=== PATIENT | female | born 1970 | race Caucasian/White ===

== ENCOUNTER → 2016-08-13 | Outpatient (CLI) | payer BC ==
[~2016-08-13] MED LIST: IBUP600T44 PO; OXYC-57 PO; PRENTAB26 PO
== END | disposition home or self-care (01) ==
LOC: C.PAPS 08:35
PROVIDERS: ATTEND Obstetrics & Gynecology
DX: N87.9 Dysplasia of cervix uteri, unspecified (principal); Z01.411 Encounter for gynecological examination (general) (routine) with abnormal findings

== ENCOUNTER → 2017-04-29 | Outpatient (CLI) | payer BC ==
--- NOTE | 2017-04-29 14:27 | MAMMOGRAPHY REPORT ---
ULTRASOUND OF BOTH BREASTS: 04/29/2017 CLINICAL HISTORY: The patient presents for screening bilateral breast ultrasound. She denies any cur rent complaints. COMPARISON: Comparison is made to exams dated: 04/28/2016 mammogram, 04/30/2015 ultrasound, 04/30/20 15 mammogram, 04/18/2015 mammogram, 02/27/2014 mammogram, and 02/13/2013 mammogram - [facility]. TECHNIQUE: Real-time ultrasound of both breasts was performed. FINDINGS: Real-time, high-resolution ultrasound was performed of both breasts including all 4 quadra nts and subareolar regions. The background parenchymal echotexture is heterogeneous. There are nume timothy anechoic circumscribed masses seen throughout both breasts, consistent with benign cysts. No ortega spicious solid masses are evident. IMPRESSION: ACR BI-RADS CATEGORY 2: BENIGN Multiple benign cysts seen bilaterally. There is no sonographic evidence of malignancy. A 1 year sc reening mammogram is recommended. The patient was verbally notified of the results. Annika Salcido M.D. ah/:04/29/2017 11:47:41 Dinkey Operator: Annika Salcido MD, [facility] letter sent: Normal 1/2 BI-RADS Code: ACR BI-RADS Category 2: Benign
--- NOTE | 2017-04-29 14:27 | MAMMOGRAPHY REPORT ---
BILATERAL DIGITAL SCREENING MAMMOGRAM TOMOSYNTHESIS WITH CAD: 04/29/2017 CLINICAL HISTORY: Routine screening. Patient has no complaints. TECHNIQUE: Breast tomosynthesis in addition to standard 2D mammography was performed. Current study was also evaluated with a Computer Aided Detection (CAD) system. COMPARISON: Comparison is made to exams dated: 04/28/2016 mammogram, 04/30/2015 ultrasound, 04/30/20 15 mammogram, 04/18/2015 mammogram, 02/27/2014 mammogram, and 02/13/2013 mammogram - [facility]. BREAST COMPOSITION: The tissue of both breasts is extremely dense, which lowers the sensitivity of m ammography. FINDINGS: No suspicious masses, calcifications, or areas of architectural distortion are noted in ei ther breast. There has been no significant interval change compared to prior exams. Multiple bilater al circumscribed benign-appearing masses are again noted bilaterally, which are considered benign giv en the multiplicity and bilaterality and are most compatible with cysts. IMPRESSION: ACR BI-RADS CATEGORY 2: BENIGN There is no mammographic evidence of malignancy. A 1 year screening mammogram is recommended. The patient was verbally notified of the results. Approximately 10% of breast cancers are not detected with mammography. A negative mammographic report should not delay biopsy if a clinically suggestive mass is present. Annika Salcido M.D. /:04/29/2017 11:44:02 Digital Intern: Liudmila CEDEÑO (R)(Marycruz), [facility] letter sent: Normal 1/2 BI-RADS Code: ACR BI-RADS Category 2: Benign
== END | disposition home or self-care (01) ==
LOC: C.MAMM 10:49
PROVIDERS: ATTEND Obstetrics & Gynecology
DX: Z12.31 Encounter for screening mammogram for malignant neoplasm of breast (principal); N60.01 Solitary cyst of right breast; N60.02 Solitary cyst of left breast

== ENCOUNTER → 2017-09-09 | Outpatient (CLI) | payer OTHER | END | disposition home or self-care (01) | LOC: C.PAPS 14:10 | PROVIDERS: ATTEND Obstetrics & Gynecology | DX: Z01.419 Encounter for gynecological examination (general) (routine) without abnormal findings (principal); N87.9 Dysplasia of cervix uteri, unspecified ==